=== PATIENT | male | born 1950 | race Caucasian/White ===

== ENCOUNTER 2016-07-14 09:50 | Outpatient (CLI) | payer OTHER | END 2016-07-14 23:00 | LOC: LAB SRH 09:50 | DX: Z79.01 Long term (current) use of anticoagulants (principal); Z95.4 Presence of other heart-valve replacement; I48.91 Unspecified atrial fibrillation ==

== ENCOUNTER 2016-07-19 09:08 | Outpatient (CLI) | payer OTHER | END 2016-07-19 23:00 | LOC: LAB SRH 09:08 | DX: Z51.81 Encounter for therapeutic drug level monitoring (principal); Z79.01 Long term (current) use of anticoagulants; Z95.2 Presence of prosthetic heart valve; I48.91 Unspecified atrial fibrillation | CPT/HCPCS: 90074; 94060 ==

== ENCOUNTER 2016-08-22 20:57 | Emergency (ER) | payer OTHER ==
--- NOTE | 2016-08-22 22:47 | DIAGNOSTIC IMAGING REPORT ---
PROCEDURE: XR CHEST 1 VIEW INDICATION: DIZZINESS TECHNIQUE: Single view chest. 2135 hours COMPARISON: 04/22/2011 FINDINGS: Mild cardiomegaly. Post median sternotomy and valvuloplasty changes. Mildly prominent central pulmonary arteries without central venous congestion. No change. Strandy horizontal density at the left lateral lung base, slightly worse compared to the prior study. No visible effusion or pneumothorax. Intact osseous structures. IMPRESSION: 1. Slight worsening of atelectatic change and/or scarring laterally at the left lung base. An underlying infection is not able to be excluded in this region. Correlate clinically. 2. Stable mild cardiomegaly with post valvuloplasty changes.
--- NOTE | 2016-08-22 23:42 | ED NURSING NOTES ---
Clinical Report - Nurses [facility] [address] [place] [address] 08/22/2016 20:57 Patient: MILAGRO FRANKEL TRIAGE Triage time 2054. Acuity: LEVEL 3. Chief Complaint: ABDOMINAL PAIN, NAUSEA and VOMITING. --21:35 Shantell Espinoza R.N. 21:29 08/22/16. BP: 99/64. HR: 70. RR: 20. O2 saturation: 95%. Temp: 97.8 F. Pain level now 02/09. --21:35 Shantell Espinoza R.N. Weight: 117.9 kg estimated. --21:29 Shantell Espinoza R.N.. <<STRICKEN ENTRY-- Height/Length: 76 inches Estimated. BMI: 31.7. --END STRIKE>> Correction --21:29 Shantell Espinoza R.N.. Height/Length: 79 inches Estimated. BMI: 29.3. --21:29 Shantell Espinoza R.N. Medications Lisinopril Oral. Metoprolol. Warfarin Sodium Oral 7.5 mg, 4 x a week (3.25 other 3 days). --21:40 Shantell Espinoza R.N. Cephalexin po started today at 1700. --21:41 Shantell Espinoza R.N. Allergies No Known Drug Allergy. --21:40 Shantell Espinoza R.N. History Arrived by EMS. Historian: patient. Accompanied by family. Primary physician (moise). Onset. (sudden onset of N/V and dizziness approx 1 hour ago. aoorix 2 hours after taking first cephalexin for foot proceedure being done tomorrow at podietrist office). He has had nausea and vomiting. He has had abdominal pain (gretchen umbilical abd pain). No diarrhea. PAST MEDICAL HX: ( Marfan Syndrome). SOCIAL HX: Never smoker. No alcohol use or drug use. --21:35 Shantell Espinoza R.N. PROBLEMS: Marfan Syndrome. Mitral valvew replacement. --21:33 Shantell Espinoza R.N. ADDITIONAL SURGERIES: Cyst removed in jaw.. Mitral valvuloplasty. --21:34 Shantell Espinoza R.N. Interventions ID band on patient. To treatment room. --21:35 Shantell Espinoza R.N. PHYSICAL ASSESSMENT 20:55. To room via stretcher. Patient gowned. GENERAL / NEURO / PSYCH: Alert. Oriented X 4. Appears anxious. ( c/o being dizzy). RESPIRATORY: Respirations not labored. CVS: Capillary refill less than 2 seconds. GI / : The patient has had nausea. Emesis noted. SKIN: Skin is warm and dry. --21:39 Shantell Espinoza R.N. NURSING PROGRESS NOTES 20:55. Patient gowned. Head of bed elevated. Reassurance given. Patient identifiers checked. Call light placed in reach. Side rails up. Bed placed in lowest position. Patient ready for evaluation- chart flagged. --21:36 Shantell Espinoza R.N. 21:08 08/22/2016 Site #1 started via IV in the left forearm with an 20g angiocath, with aseptic technique and good blood return; one attempt. Blood drawn: rainbow set. Labeled in the presence of the patient and sent to the lab. --21:36 Shantell Espinoza R.N. 21:10 08/22/2016 Zofran (Ondansetron HCl) IVP 4 mg given over 1 minute(s) via site #1. IV patency established. IV site checked: no pain, redness, or swelling. IV flushed thoroughly pre- and post-medication administration. IVP given by RN. --21:37 Shantell Espinoza R.N. 21:25. ( Port x-ray at bedside to do chest film). --21:38 Shantell Espinoza R.N. 21:30 08/22/16. BP: 119/64. HR: 64. RR: 18. O2 saturation: 96% on room air. Temp: deferred. Pain level now: cannot qualify. Additional comments: pt states "i'm just dizzy..." won't give me a pain number. refuses to let me lay him flat states that that would "just make him more dizzy and throw up". --21:50 Shantell Espinoza R.N. 21:30 08/22/2016 Started bag #1 1000 mL IV Fluids IV NS (Saline); bolus of 500 mL over 30 minute(s) then at 125 mL/hr over 4 hour(s) via site #1 via IV pump. IV patency established. IV site checked: no pain, redness, or swelling. IV flushed thoroughly pre- and post-medication administration. --21:51 Shantell Espinoza R.N. 22:28 08/22/2016 IV Fluids IV NS via IV site #1 Rate Changed: bag #1 125 mL/hr via IV pump. IV patency established. IV site checked: no pain, redness, or swelling. IV flushed thoroughly. (50CC BOLUS COMPLETE, iv RATE DECREASED TO 125/HR. pt states that he is less dizzy now, but is still nauseated. additional meds given for nausea). --22:38 Shantell Espinoza R.N. 22:34 08/22/2016 Zofran (Ondansetron HCl) IVP 4 mg given over 1 minute(s) via site #1. IV patency established. IV site checked: no pain, redness, or swelling. IV flushed thoroughly pre- and post-medication administration. IVP given by RN. --22:39 Shantell Espinoza R.N. 22:30 08/22/16. BP: 116/56. HR: 62. RR: 16. O2 saturation: 98%. Temp: deferred. Pain level now: cannot qualify. Additional comments: states dizziness is better, still nauseated . --22:42 Shantell Espinoza R.N. 22:38. Patient ID band checked for patient name and birthdate: patient confirmed. Clean catch urine collected with return of earl-colored clear urine; sample sent to lab for urinalysis and culture. Specimen labeled in the presence of the patient. --22:50 Shantell Espinoza R.N. 22:40. Care transferred and report given (J Carlos BRENDAN Rodriguez). --22:56 Shantell Espinoza R.N. 00:08. The patient is calm and resting quietly. SKIN: Skin is warm and dry. Skin color within normal limits. --00:12 J Carlos Still R.N. DISPOSITION / DISCHARGE 00:04 08/23/2016 IV Fluids IV NS Discontinued: bag #1 STOPPED upon discharge. Total amount infused: 700 mL. IV patency established. IV site checked: no pain, redness, or swelling. IV flushed thoroughly. --00:12 J Carlos Still R.N. 00:05 08/23/2016 Site #1 removed upon discharge. Catheter intact. Bandage applied. --00:10 J Carlos Still R.N. Departure time: 00:10. Condition at departure: stable. No learning barriers present. Discharge instructions provided and reviewed with the patient and spouse. Reviewed medication(s) side effects, precautions, dosing and course information. Prescription(s) given to the patient. Patient and spouse verbalized understanding. Written instructions provided in Bulgarian. The patient was discharged home and accompanied by spouse. He left the Emergency Department ambulatory and via private vehicle. Spouse driving. FALL RISK ASSESSMENT: Fall risk assessment completed. No fall risk identified. --00:12 J Carlos Still R.N. 00:09 08/23/16. BP: 121/61. HR: 65. RR: 15. O2 saturation: 97% on room air. Pain level now: 0/10. --00:12 J Carlos Still R.N. Locked/Released at 08/23/2016 2:39 by J Carlos Still R.N.
--- NOTE | 2016-08-22 23:42 | ED ORDER SUMMARY ---
..... Patient: MILAGRO FRANKEL OrderSheet [facility] VisitID: [id number] [address] [place] [address] 66y, M Registration Date/Time: 08/22/2016 ORDER SHEET Weight: 117.9 kg (estimated) Allergies: No Known Drug Allergy GENERAL ORDERS: Chest 1V Urgent (21:08/22/2016 Connie SMITH) (Ack 21:20 LMuller) (21:39 LMuller) Steel Wool Machine Operator (Continuous) (21:08/22/2016 Connie SMITH) (Ack 21:20 LMuller) (21:28 DDean R.N.) CBC w Diff Urgent (:08/22/2016 Connie SMITH) (Ack 21:20 LMuller) (21:28 DDean R.N.) CMP Urgent (21:08/22/2016 Connie SMITH) (Ack 21:20 LMuller) (21:28 DDean R.N.) PT with INR Urgent (21:08/22/2016 Connie SMITH) (Ack 21:20 LMmiky) (21:28 DDean R.N.) PTT Urgent (:08/22/2016 Connie SMITH) (Ack 21:20 LMmiky) (21:28 DDean R.N.) Amylase Urgent (21:08/22/2016 Connie SMITH) (Ack 21:20 LMulljose david) (21:28 DDean R.N.) Lipase Urgent (21:08/22/2016 Connie SMITH) (Ack 21:20 LMmiky) (21:28 DDean R.N.) UA-Culture if indicated Urgent (21:08/22/2016 Connie SMITH) (Ack 21:20 Darrell) (22:50 DDean R.N.) CPK Urgent (21:08/22/2016 Connie SMITH) (Ack 21:20 LMmiky) (21:28 DDean R.N.) Troponin-I Urgent (21:08/22/2016 Connie SMITH) (Ack 21:20 LMuller) (21:28 DDean R.N.) BNP Urgent (21:17 08/22/2016 Connie SMITH) (Ack 21:20 LMmiky) (21:28 DDean R.N.) Pulse oximeter (21:17 08/22/2016 Connie SMITH) (Ack 21:20 LMchleaer) (21:28 DDean R.N.) EKG - ER Stat (21:17 08/22/2016 Connie SMITH) (Ack 21:20 Darrell) (21:43 ALawrence ER Tech1) MEDICATION ORDERS: IV FLUIDS: IV NS : initial bolus 500 mL (1000 mL/hr), then 125 mL/hr for 4h (NOW); Urgent (21:17 08/22/2016 Connie SMITH) (Ack 21:28 DDean R.N.) (21:51 DDean R.N.) Zofran IV 4 mg (NOW) (21:17 08/22/2016 Connie SMITH) (Ack 21:28 DDean R.N.) (21:37 DDean R.N.) Zofran IV 4 mg (NOW) (22:38 08/22/2016 DDean R.N. per protocol) (22:39 DDean R.N.) ORDER SHEET NOTES: [Electronically signed by J Carlos Still R.N. (02:39 08/23/2016)] [Electronically signed by Roosevelt Ordaz MD (08:27 08/23/2016)] [Electronically locked/signed by J Carlos Still R.N. (02:39 08/23/2016)]
--- NOTE | 2016-08-22 23:42 | ED ORDER SUMMARY ---
..... Patient: MILAGRO FRANKEL OrderSheet [facility] VisitID: [id number] [address] [place] [address] 66y, M Registration Date/Time: 08/22/2016 ORDER SHEET Weight: 117.9 kg (estimated) Allergies: No Known Drug Allergy GENERAL ORDERS: Chest 1V Urgent (21:08/22/2016 Connie SMITH) (Ack 21:20 LMuller) (21:39 LMuller) Administrative Sales Assistant (Continuous) (21:08/22/2016 Connie SMITH) (Ack 21:20 LMuller) (21:28 DDean R.N.) CBC w Diff Urgent (:08/22/2016 Connie SMITH) (Ack 21:20 LMuller) (21:28 DDean R.N.) CMP Urgent (21:08/22/2016 Connie SMITH) (Ack 21:20 LMuller) (21:28 DDean R.N.) PT with INR Urgent (21:08/22/2016 Connie SMITH) (Ack 21:20 LMmiky) (21:28 DDean R.N.) PTT Urgent (:08/22/2016 Connie SMITH) (Ack 21:20 LMmiky) (21:28 DDean R.N.) Amylase Urgent (21:08/22/2016 Connie SMITH) (Ack 21:20 LMulljose david) (21:28 DDean R.N.) Lipase Urgent (21:08/22/2016 Connie SMITH) (Ack 21:20 LMmiky) (21:28 DDean R.N.) UA-Culture if indicated Urgent (21:08/22/2016 Connie SMITH) (Ack 21:20 Darrell) (22:50 DDean R.N.) CPK Urgent (21:08/22/2016 Connie SMITH) (Ack 21:20 LMmiky) (21:28 DDean R.N.) Troponin-I Urgent (21:08/22/2016 Connie SMITH) (Ack 21:20 LMuller) (21:28 DDean R.N.) BNP Urgent (21:17 08/22/2016 Connie SMITH) (Ack 21:20 LMmiky) (21:28 DDean R.N.) Pulse oximeter (21:17 08/22/2016 Connie SMITH) (Ack 21:20 LMchelaer) (21:28 DDean R.N.) EKG - ER Stat (21:17 08/22/2016 Connie SMITH) (Ack 21:20 Darrell) (21:43 ALawrence ER Tech1) MEDICATION ORDERS: IV FLUIDS: IV NS : initial bolus 500 mL (1000 mL/hr), then 125 mL/hr for 4h (NOW); Urgent (21:17 08/22/2016 Connie SMITH) (Ack 21:28 DDean R.N.) (21:51 DDean R.N.) Zofran IV 4 mg (NOW) (21:17 08/22/2016 Connie SMITH) (Ack 21:28 DDean R.N.) (21:37 DDean R.N.) Zofran IV 4 mg (NOW) (22:38 08/22/2016 DDean R.N. per protocol) (22:39 DDean R.N.) ORDER SHEET NOTES: [Electronically signed by J Carlos Still R.N. (02:39 08/23/2016)] [Electronically signed by Roosevelt Ordaz MD (08:27 08/23/2016)] [Electronically locked/signed by J Carlos Still R.N. (02:39 08/23/2016)]
--- NOTE | 2016-08-22 23:42 | ED CLINICAL REPORT ---
Clinical Report - Physicians/Mid Levels [facility] [address] [place] [address] 08/22/2016 20:57 Patient: MILAGRO FRANKEL Time Seen: 21:09. Arrived- By private vehicle. Historian- patient. HISTORY OF PRESENT ILLNESS Chief Complaint: VOMITING. This started about 1 hour ago and is still present. It was abrupt in onset and has been intermittent. The patient has had nausea. He has had moderate vomiting. The vomiting has occurred several times. No blood-tinged emesis, coffee-grounds emesis or frankly bloody emesis. No diarrhea, black stools or bloody stools. He has had severe, crampy, intermittent abdominal pain (recently - gone nw). The pain is described as located in the central area of the abdomen. Has recently been on antibiotics (he started a prescription for Cephalexin at 5 PM for a toe infection). The illness is described as moderate. Recent medical care: The patient was seen recently in a clinic. Seen for other problems. ( he was diagnosed with cellulitis of his left second toe and was started on cephalexin today). REVIEW OF SYSTEMS No chills, fever, sweats, calf pain or chest pain. No cough, difficulty breathing, palpitations, black stools or bloody stools. No constipation, diarrhea or urinary problems. He has had mild pedal edema involving the right and left leg (chronically). It has been similar to previous symptoms. All systems otherwise negative, except as recorded above. PAST HISTORY PCP - [facility]. Problems: Marfan Syndrome. Mitral valvew replacement. Additional Surgeries: Cyst removed in jaw.. Mitral valvuloplasty. Medications: Cephalexin po started today at 1700. Lisinopril Oral. Metoprolol. Warfarin Sodium Oral 7.5 mg, 4 x a week (3.25 other 3 days). Allergies: No Known Drug Allergy. SOCIAL HISTORY Never smoker. No alcohol use or drug use. He lives with spouse. Has good social support. FAMILY HISTORY Denies family medical history. ADDITIONAL NOTES The nursing notes have been reviewed. PHYSICAL EXAM Vital Signs: 08/22/2016 21:29 BP: 99/64. HR: 70. RR: 20. O2 saturation: 95%. Temp: 97.8 F. Have been reviewed. Appearance: Alert. Eyes: Pupils equal, round and reactive to light. ENT: Pharynx normal. Neck: Normal inspection. Neck supple. CVS: Normal heart rate and rhythm. Heart sounds normal. Respiratory: No respiratory distress. Breath sounds normal. Abdomen: Soft and nontender. Abnormal bowel sounds: hyperactive. No organomegaly. No mass. Back: Normal inspection. No CVA tenderness. Skin: Skin warm and dry. Normal skin color. No rash. Normal skin turgor. Extremities: Bilateral mild edema of the lower extremities. Extremities exhibit normal ROM. No calf tenderness. Left foot: mild erythema and swelling and moderate tenderness of the second toe. LABS, X-RAYS, AND EKG EKG: Rate: 60. unusual P axis. Prior EKG unavailable. The study has been independently viewed by me. Laboratory Tests: UA-Culture if indicated: (LINDA: 08/22/2016 22:38) ( [facility] 08/22/2016 23:00) Final results Test Result Flag Units (Reference) URINE COLOR YELLOW URINE APPEARANCE CLEAR URINE GLUCOSE NEGATIVE (NEGATIVE) URINE BILIRUBIN NEGATIVE (NEGATIVE) URINE KETONE NEGATIVE (NEGATIVE) URINE SPECIFIC GRAVITY >= 1.030 (1.010-1.030) URINE PH 6.0 (5.0-8.0) URINE PROTEIN TRACE (NEGATIVE) URINE UROBILINOGEN 0.2 EU/dL (0.2-1.0) URINE NITRITE NEGATIVE (NEGATIVE) URINE BLOOD NEGATIVE (NEGATIVE) URINE LEUK ESTERASE NEGATIVE (NEGATIVE) URINE RBC 0-1 rbc/hpf (0-1) URINE WBC 0-1 wbc/hpf (0-1) URINE EPITHELIAL CELLS 0-1 EPI/hpf (0-5) URINE BACTERIA NONE SEEN (NONE SEEN) URINE COMMENT CULT NOT INDICATED URINE CULTURES ARE SET-UP BASED ON THE FOLLOWING CRITERIA:POSITIVE NITRITEPOSITIVE LEUKOCYTE ESTERASEGREATER THAN 10 WHITE BLOOD CELLSMODERATE (2+) OR GREATER BACTERIA CBC w Diff: (LINDA: 08/22/2016 21:08) ( [facility] 08/22/2016 21:43) Final results Test Result Flag Units (Reference) WHITE BLOOD COUNT 10.6 K/uL (4.5-11.5) RED BLOOD COUNT 5.54 M/uL (4.50-5.90) HEMOGLOBIN 16.8 gm/dL (13.5-17.5) HEMATOCRIT 50.1 % (41.0-53.0) MEAN CELL VOLUME 90 fL (80-100) MEAN CORPUSCULAR HGB 30 pg (26-34) MEAN CORPUSCULAR HGB CONC 34 g/dL (31-37) RED CELL DISTRIBUTION WIDTH 14.1 % (11.6-14.8) PLATELET COUNT 152 K/uL (150-400) NEUTROPHIL % 84.3 H % (50-75) LYMPH % 13.8 L % (25-40) MONO % 1.6 L % (3-14) EOSINOPHIL % 0.1 % (0-4) BASOPHIL % 0.2 % (0-2) PT with INR: (LINDA: 08/22/2016 21:08) ( [facility] 08/22/2016 21:50) Final results Test Result Flag Units (Reference) INR 1.9 H (0.8-1.2) Low Intensity Therapy: INR 1.5-2.0 PT range 18.5-23.1Mod.Intensity Therapy: INR 2.0-3.0 PT range 23.1-31.5High Intensity Therapy: INR 2.5-3.5 PT range 27.4-35.5High Intensity Therapy 2: INR 3.0-4.0 PT range 31.5-39.3 APTT 34 SECONDS (24-34) BNP: (LINDA: 08/22/2016 21:08) ( [facility] 08/22/2016 22:16) Final results Test Result Flag Units (Reference) B-TYPE NATRIURETIC PEPTIDE 67.4 pg/ml (5-100) CMP: (LINDA: 08/22/2016 21:08) ( [facility] 08/22/2016 22:19) Final results Test Result Flag Units (Reference) GLUCOSE 138 H mg/dL (70-110) BUN 24 H mg/dL (7-18) CREATININE 1.0 mg/dL (0.6-1.3) Estimated GFR >60 mL/min Estimated GFR- >60 mL/min Note: Persistent reduction over 3 months in eGFR<60 mL/min/1.73 m2 defines CKD. Patients with eGFR values>=60 mL/min/1.73 m2 may also have CKD if evidence ofpersistent proteinuria. Additional information may be foundat www.kidney.org. SODIUM 142 mmol/L (136-145) POTASSIUM 3.5 mmol/L (3.5-5.1) CHLORIDE 105 mmol/L (98-107) CARBON DIOXIDE 24 mmol/L (21-32) CALCIUM 8.7 mg/dL (8.5-10.1) TOTAL PROTEIN 7.2 g/dL (6.4-8.2) ALBUMIN 3.8 g/dL (3.3-5.0) BILIRUBIN, TOTAL 0.6 mg/dL (0.0-1.0) ALKALINE PHOSPHATASE 93 U/L (46-116) AST (SGOT) 25 U/L (15-37) ALT (SGPT) 28 U/L (12-78) LIPASE 122 U/L (73-393) AMYLASE 60 U/L (25-115) CPK 80 U/L (24-260) TROPONIN I <0.05 L ng/mL (0.00-1.5) TROPONIN REFERENCE RANGE:<0.1 NEGATIVE0.1-1.5 INDETERMINANT>1.5 POSITIVE . CLINICAL IMPRESSION Vomiting with nausea. Cellulitis of the left 2nd toe. Possible adverse drug reaction involving the cephalosporin class of antibiotic. INSTRUCTIONS Drink plenty of fluids. Warnings: Further evaluation is necessary. SEDATIVE MEDICATION: You were given sedative medication during your visit. Do not drive or operate dangerous machinery. GENERAL WARNINGS: Return or contact your physician immediately if your condition worsens or changes unexpectedly, if not improving as expected, or if other problems arise. Your Current Medications: STOP TAKING THE FOLLOWING MEDICATIONS: Cephalexin po started today at 1700*. CONTINUE TAKING THE FOLLOWING MEDICATIONS: Lisinopril Oral. Metoprolol*. Warfarin Sodium Oral : 7.5 mg 4 x a week, 3.25 other 3 days. Prescription Medications: Zofran 4 mg: Take 1 orally every six hours as needed for nausea/vomiting. Dispense ten (10). No refills. Substitution is permissible. Trimethoprim-Sulfamethoxazole DS: take 1 tablet orally every 12 hours for 7 days. Dispense fourteen (14). No refills. Follow-up: Follow up with your doctor tomorrow as scheduled. Understanding of the discharge instructions verbalized by patient and family. (Electronically signed by Roosevelt Ordaz MD 08/23/2016 8:27)
--- NOTE | 2016-08-23 08:27 | ED DISCHARGE INSTRUCTIONS ---
Patient: MILAGRO FRANKEL General Instructions [facility] VisitID: [id number] [place] [address] 66y, M Registration Date/Time: 08/22/2016 Vomiting with nausea. Cellulitis of the left 2nd toe. INSTRUCTIONS Drink plenty of fluids. Warnings: Further evaluation is necessary. SEDATIVE MEDICATION: You were given sedative medication during your visit. Do not drive or operate dangerous machinery. GENERAL WARNINGS: Return or contact your physician immediately if your condition worsens or changes unexpectedly, if not improving as expected, or if other problems arise. Your Current Medications: STOP TAKING THE FOLLOWING MEDICATIONS: Cephalexin po started today at 1700*. CONTINUE TAKING THE FOLLOWING MEDICATIONS: Lisinopril Oral. Metoprolol*. Warfarin Sodium Oral : 7.5 mg 4 x a week, 3.25 other 3 days. Prescription Medications: Zofran 4 mg: Take 1 orally every six hours as needed for nausea/vomiting. Dispense ten (10). No refills. Substitution is permissible. Trimethoprim-Sulfamethoxazole DS: take 1 tablet orally every 12 hours for 7 days. Dispense fourteen (14). No refills. Follow-up: Follow up with your doctor tomorrow as scheduled. Understanding of the discharge instructions verbalized by patient and family. ADDITIONAL INFORMATION Vomiting [6Yr-Adult] Vomiting is a common symptom that may be due to different causes. These include gastroenteritis ("stomach flu"), food poisoning and gastritis. There are other more serious causes of vomiting which may be hard to diagnose early in the illness. Therefore, it is important to watch for the warning signs listed below. The main danger from repeated vomiting is dehydration. This is due to excess loss of water and minerals from the body. When this occurs, body fluids must be replaced. Home Care: If symptoms are severe, rest at home for the next 24 hours. You may use acetaminophen (Tylenol) or ibuprofen (Motrin, Advil) to control fever, unless another medicine was prescribed. [NOTE : If you have chronic liver or kidney disease or ever had a stomach ulcer or GI bleeding, talk with your doctor before using these medicines.] (Aspirin should never be used in anyone under 18 years of age who is ill with a fever. It may cause severe liver damage.) Avoid tobacco and alcohol use, which may worsen your symptoms. If medicines for vomiting were prescribed, take as directed. Once vomiting stops, then follow these guidelines: During The First 12-24 Hours follow the diet below: FRUIT JUICES: Apple, grape juice, clear fruit drinks, and electrolyte replacement drinks. BEVERAGES: Soft drinks without caffeine; mineral water (plain or flavored), decaffeinated tea and coffee. SOUPS: Clear broth, consomm and bouillon DESSERTS: Plain gelatin, popsicles and fruit juice bars. As you feel better, you may add 6-8 ounces of yogurt per day. During The Next 24 Hours you may add the following to the above: Hot cereal, plain toast, bread, rolls, crackers Plain noodles, rice, mashed potatoes, chicken noodle or rice soup Unsweetened canned fruit (avoid pineapple), bananas Limit caffeine and chocolate. No spices or seasonings except salt. During The Next 24 Hours Gradually resume a normal diet, as you feel better and your symptoms lessen. Follow Up with your doctor as advised if you are not improving over the next 2-3 days. Get Prompt Medical Attention if any of the following occur: Constant right-sided lower abdominal pain or increasing general abdominal pain Continued vomiting (unable to keep liquids down) for 24 hours Frequent diarrhea (more than 5 times a day); blood (red or black color) or mucus in diarrhea Reduced urine output or extreme thirst Weakness, dizziness or fainting Unusually drowsy or confused Fever of 100.4F (38C) oral or higher, not better with fever medication Yellow color of the eyes or skin Cellulitis You have an infection of the skin known as cellulitis. This usually starts with a scrape, cut, insect bite, blister or other opening in the skin which becomes infected. This is a serious condition. It must be watched closely to be sure the infection is not spreading. With antibiotic treatment, the size of the red area will gradually shrink in size until the skin returns to normal. This will take 7-10 days. The red area should never increase in size once the antibiotic medicine has been started. Occasionally, an infection will be resistant to one antibiotic and another one will have to be used. Home Care: 1) Limit the use of the affected part, since excess movement can cause the infection to spread. 2) If the infection is on your leg, walk as little as possible during the first few days of the treatment. Keep your leg elevated while sitting. This will reduce swelling. 3) Take all of the antibiotic medicine exactly as directed until it is gone. Be careful not to miss any doses, especially during the first seven days. Follow Up with your doctor or this facility as directed. Check the infected area daily for the warning signs listed below. Get Prompt Medical Attention if any of the following occur: -- Spreading area of redness -- Increasing swelling or pain -- Appearance of pus or drainage -- Fever over 100.4 F (38.0 C) oral, or over 101.4 F (38.6 C) rectal, after two days on antibiotics Ondansetron Oral disintegrating tablet What is this medicine? ONDANSETRON (on INDRA se brennan) is used to treat nausea and vomiting caused by chemotherapy. It is also used to prevent or treat nausea and vomiting after surgery. How should I use this medicine? These tablets are made to dissolve in the mouth. Do not try to push the tablet through the foil backing. With dry hands, peel away the foil backing and gently remove the tablet. Place the tablet in the mouth and allow it to dissolve, then swallow. While you may take these tablets with water, it is not necessary to do so. Talk to your brazing furnace operator regarding the use of this medicine in children. Special care may be needed. What side effects may I notice from receiving this medicine? Side effects that you should report to your doctor or health acute care nurse practitioner as soon as possible: allergic reactions like skin rash, itching or hives, swelling of the face, lips, or tongue breathing problems dizziness fast or irregular heartbeat feeling faint or lightheaded, falls fever and chills swelling of the hands and feet tightness in the chest Side effects that usually do not require medical attention (report to your doctor or health acute care nurse practitioner if they continue or are bothersome): constipation or diarrhea headache What may interact with this medicine? Do not take this medicine with any of the following medications: -apomorphine -cisapride -dofetilide -dronedarone -pimozide -thioridazine -ziprasidone This medicine may also interact with the following medications: -carbamazepine -phenytoin -rifampicin -tramadol -other medicines that prolong the QT interval (cause an abnormal heart rhythm) What if I miss a dose? If you miss a dose, take it as soon as you can. If it is almost time for your next dose, take only that dose. Do not take double or extra doses. Where should I keep my medicine? Keep out of the reach of children. Store between 2 and 30 degrees C (36 and 86 degrees F). Throw away any unused medicine after the expiration date. What should I tell my health care provider before I take this medicine? They need to know if you have any of these conditions: heart disease history of irregular heartbeat liver disease low levels of magnesium or potassium in the blood an unusual or allergic reaction to ondansetron, granisetron, other medicines, foods, dyes, or preservatives or trying to get breast-feeding What should I watch for while using this medicine? Check with your doctor or health acute care nurse practitioner as soon as you can if you have any sign of an allergic reaction. Sulfamethoxazole, Trimethoprim Oral tablet What is this medicine? SULFAMETHOXAZOLE; TRIMETHOPRIM or SMX-TMP (suhl fuh meth OK du zohl; trye METH oh prim) is a combination of a sulfonamide antibiotic and a second antibiotic, trimethoprim. It is used to treat or prevent certain kinds of bacterial infections. It will not work for colds, flu, or other viral infections. How should I use this medicine? Take this medicine by mouth with a full glass of water. Follow the directions on the prescription label. Take your medicine at regular intervals. Do not take it more often than directed. Do not skip doses or stop your medicine early. Talk to your brazing furnace operator regarding the use of this medicine in children. Special care may be needed. This medicine has been used in children as young as 2 months of age. What side effects may I notice from receiving this medicine? Side effects that you should report to your doctor or health acute care nurse practitioner as soon as possible: allergic reactions like skin rash or hives, swelling of the face, lips, or tongue breathing problems fever or chills, sore throat irregular heartbeat, chest pain joint or muscle pain pain or difficulty passing urine red pinpoint spots on skin redness, blistering, peeling or loosening of the skin, including inside the mouth unusual bleeding or bruising unusually weak or tired yellowing of the eyes or skin Side effects that usually do not require medical attention (report to your doctor or health acute care nurse practitioner if they continue or are bothersome): diarrhea dizziness headache loss of appetite nausea, vomiting nervousness What may interact with this medicine? Do not take this medicine with any of the following medications: aminobenzoate potassium dofetilide metronidazole This medicine may also interact with the following medications: XI inhibitors like benazepril, enalapril, lisinopril, and ramipril cyclosporine digoxin diuretics indomethacin medicines for diabetes methenamine methotrexate phenytoin potassium supplements pyrimethamine sulfinpyrazone tricyclic antidepressants warfarin What if I miss a dose? If you miss a dose, take it as soon as you can. If it is almost time for your next dose, take only that dose. Do not take double or extra doses. Where should I keep my medicine? Keep out of the reach of children. Store at room temperature between 20 to 25 degrees C (68 to 77 degrees F). Protect from light. Throw away any unused medicine after the expiration date. What should I tell my health care provider before I take this medicine? They need to know if you have any of these conditions: anemia asthma being treated with anticonvulsants if you frequently drink alcohol containing drinks kidney disease liver disease low level of folic acid or [id number] dehydrogenase poor nutrition or malabsorption porphyria severe allergies thyroid disorder an unusual or allergic reaction to sulfamethoxazole, trimethoprim, sulfa drugs, other medicines, foods, dyes, or preservatives or trying to get breast-feeding What should I watch for while using this medicine? Tell your doctor or health acute care nurse practitioner if your symptoms do not improve. Drink several glasses of water a day to reduce the risk of kidney problems. Do not treat diarrhea with over the counter products. Contact your doctor if you have diarrhea that lasts more than 2 days or if it is severe and watery. This medicine can make you more sensitive to the sun. Keep out of the sun. If you cannot avoid being in the sun, wear protective clothing and use a sunscreen. Do not use sun lamps or tanning beds/booths. You have been given the following additional information: Vomiting (6Y-Adult) Cellulitis Ondansetron Oral disintegrating tablet Sulfamethoxazole, Trimethoprim Oral tablet (Electronically signed by Roosevelt Ordaz MD 08/23/2016 8:27)
--- NOTE | 2016-08-23 08:27 | ED MAR SUMMARY ---
..... Medication Administration Record [facility] [address] [place] [address] Patient: MILAGRO FRANKEL Visit ID: [id number] 66y, M Weight: 117.9 kg Height/Length: 79 in BMI: 29.3 ALLERGIES: No Known Drug Allergy Given 21:10 08/22/2016 Shantell Espinoza R.N. Medication Administered: ZOFRAN [IVP] (ONDANSETRON HCL), Dose: 4 mg IVP over 1 minute(s), Site: #1 left forearm. Medication Ordered: Zofran IV 4 mg (NOW). Start 21:30 08/22/2016 Shantell Espinoza R.N., Stop 00:04 08/23/2016 J Carlos Still R.N. Medication Administered: IV NS (SALINE), Dose: IV Fluids over 4 hour(s), Rate: 125 mL/hr, Bolus: 500 mL over 30 minute(s), Dispensed: 1000 mL bag, Site: #1 left forearm. Medication Ordered: IV NS : initial bolus 500 mL (1000 mL/hr), then 125 mL/hr for 4h (NOW); Urgent. Given 22:34 08/22/2016 Shantell Espinoza R.N. Medication Administered: ZOFRAN [IVP] (ONDANSETRON HCL), Dose: 4 mg IVP over 1 minute(s), Site: #1 left forearm. Medication Ordered: Zofran IV 4 mg (NOW).
--- NOTE | 2016-08-23 08:27 | ED MAR SUMMARY ---
..... Medication Administration Record [facility] [address] [place] [address] Patient: MILAGRO FRANKEL Visit ID: [id number] 66y, M Weight: 117.9 kg Height/Length: 79 in BMI: 29.3 ALLERGIES: No Known Drug Allergy Given 21:10 08/22/2016 Shantell Espinoza R.N. Medication Administered: ZOFRAN [IVP] (ONDANSETRON HCL), Dose: 4 mg IVP over 1 minute(s), Site: #1 left forearm. Medication Ordered: Zofran IV 4 mg (NOW). Start 21:30 08/22/2016 Shantell Espinoza R.N., Stop 00:04 08/23/2016 J Carlos Still R.N. Medication Administered: IV NS (SALINE), Dose: IV Fluids over 4 hour(s), Rate: 125 mL/hr, Bolus: 500 mL over 30 minute(s), Dispensed: 1000 mL bag, Site: #1 left forearm. Medication Ordered: IV NS : initial bolus 500 mL (1000 mL/hr), then 125 mL/hr for 4h (NOW); Urgent. Given 22:34 08/22/2016 Shantell Espinoza R.N. Medication Administered: ZOFRAN [IVP] (ONDANSETRON HCL), Dose: 4 mg IVP over 1 minute(s), Site: #1 left forearm. Medication Ordered: Zofran IV 4 mg (NOW).
--- NOTE | 2016-08-23 08:28 | ED MED RECONCILIATION SUMMARY ---
Patient: MILAGRO FRANKEL Medication Reconciliation Report [facility] VisitID: [id number] [address] [place] [address] 66y, M Registration Date/Time: 08/22/2016 Weight: 117.9 kg Height/Length: 79 in. BMI: 29.3 ALLERGIES: No Known Drug Allergy The patient's Home Medications are listed below: STOP TAKING THE FOLLOWING MEDICATIONS: Cephalexin po started today at 1700 CONTINUE TAKING THE FOLLOWING MEDICATIONS: Lisinopril Oral Metoprolol Warfarin Sodium Oral 7.5 mg, 4 x a week, 3.25 other 3 days The source(s) of the original Home Medication information: Not obtained. The following Medications were given to the patient in the Emergency Department: Zofran [IVP] IVP 4 mg, administered: 08/22/2016 9:10:00 PM IV NS IV Fluids bolus 500 mL over 30 minute(s), then 125 mL/hr, administered: 08/22/2016 9:30:00 PM Zofran [IVP] IVP 4 mg, administered: 08/22/2016 10:34:00 PM The following Medications were prescribed to the patient: Zofran 4 mg: Take 1 orally every six hours as needed for nausea/vomiting. Dispense ten (10). No refills. Substitution is permissible. -- Roosevelt Ordaz MD Trimethoprim-Sulfamethoxazole DS: take 1 tablet orally every 12 hours for 7 days. Dispense fourteen (14). No refills. -- Roosevelt Ordaz MD
--- NOTE | 2016-08-23 08:28 | ED MED RECONCILIATION SUMMARY ---
Patient: MILAGRO FRANKEL Medication Reconciliation Report [facility] VisitID: [id number] [address] [place] [address] 66y, M Registration Date/Time: 08/22/2016 Weight: 117.9 kg Height/Length: 79 in. BMI: 29.3 ALLERGIES: No Known Drug Allergy The patient's Home Medications are listed below: STOP TAKING THE FOLLOWING MEDICATIONS: Cephalexin po started today at 1700 CONTINUE TAKING THE FOLLOWING MEDICATIONS: Lisinopril Oral Metoprolol Warfarin Sodium Oral 7.5 mg, 4 x a week, 3.25 other 3 days The source(s) of the original Home Medication information: Not obtained. The following Medications were given to the patient in the Emergency Department: Zofran [IVP] IVP 4 mg, administered: 08/22/2016 9:10:00 PM IV NS IV Fluids bolus 500 mL over 30 minute(s), then 125 mL/hr, administered: 08/22/2016 9:30:00 PM Zofran [IVP] IVP 4 mg, administered: 08/22/2016 10:34:00 PM The following Medications were prescribed to the patient: Zofran 4 mg: Take 1 orally every six hours as needed for nausea/vomiting. Dispense ten (10). No refills. Substitution is permissible. -- Roosevelt Ordaz MD Trimethoprim-Sulfamethoxazole DS: take 1 tablet orally every 12 hours for 7 days. Dispense fourteen (14). No refills. -- Roosevelt Ordaz MD
== END 2016-08-23 00:10 | disposition home or self-care (01) ==
LOC: ED SRH 20:57
DX: R11.2 Nausea with vomiting, unspecified (principal); L03.032 Cellulitis of left toe; I10 Essential (primary) hypertension; Z79.899 Other long term (current) drug therapy
CPT/HCPCS: 90004; 90100; 90616; 91320; 92235; 92530; 92610; 94001; 94060; 95059

== ENCOUNTER 2016-08-30 09:22 | Outpatient (CLI) | payer OTHER | END 2016-08-30 23:00 | LOC: LAB SRH 09:22 | DX: Z79.01 Long term (current) use of anticoagulants (principal); Z95.4 Presence of other heart-valve replacement; I48.91 Unspecified atrial fibrillation | CPT/HCPCS: 90074; 94060 ==

== ENCOUNTER 2016-09-13 08:36 | Outpatient (CLI) | payer OTHER | END 2016-09-13 23:00 | LOC: LAB SRH 08:36 | DX: Z79.01 Long term (current) use of anticoagulants (principal); Z95.4 Presence of other heart-valve replacement; I48.91 Unspecified atrial fibrillation | CPT/HCPCS: 90074; 94060 ==

== ENCOUNTER 2016-09-20 10:22 | Outpatient (CLI) | payer OTHER | END 2016-09-20 23:00 | LOC: LAB SRH 10:22 | DX: Z51.81 Encounter for therapeutic drug level monitoring (principal); Z79.01 Long term (current) use of anticoagulants; Z95.4 Presence of other heart-valve replacement; I48.91 Unspecified atrial fibrillation | CPT/HCPCS: 90074; 94060 ==

== ENCOUNTER 2016-10-04 09:17 | Outpatient (CLI) | payer OTHER | END 2016-10-04 23:00 | LOC: LAB SRH 09:17 | DX: Z79.01 Long term (current) use of anticoagulants (principal); Z95.4 Presence of other heart-valve replacement; I48.91 Unspecified atrial fibrillation | CPT/HCPCS: 90074; 94060 ==

== ENCOUNTER 2016-10-11 09:42 | Outpatient (CLI) | payer OTHER | END 2016-10-11 23:00 | LOC: LAB SRH 09:42 | DX: Z79.01 Long term (current) use of anticoagulants (principal); Z51.81 Encounter for therapeutic drug level monitoring; I48.91 Unspecified atrial fibrillation; Z95.4 Presence of other heart-valve replacement | CPT/HCPCS: 90074; 94060 ==

== ENCOUNTER 2016-10-20 09:16 | Outpatient (CLI) | payer OTHER | END 2016-10-20 23:00 | disposition home or self-care (01) | LOC: LAB SRH 09:16 | DX: Z51.81 Encounter for therapeutic drug level monitoring (principal); Z79.01 Long term (current) use of anticoagulants; I48.91 Unspecified atrial fibrillation; Z95.2 Presence of prosthetic heart valve | CPT/HCPCS: 90074; 94060 ==

== ENCOUNTER 2016-11-03 11:28 | Outpatient (CLI) | payer OTHER | END 2016-11-03 23:00 | LOC: LAB SRH 11:28 | DX: Z79.01 Long term (current) use of anticoagulants (principal); Z95.4 Presence of other heart-valve replacement; I48.91 Unspecified atrial fibrillation | CPT/HCPCS: 90074; 94060 ==

== ENCOUNTER 2016-11-17 09:14 | Outpatient (CLI) | payer OTHER | END 2016-11-17 23:00 | LOC: LAB SRH 09:14 | DX: Z51.81 Encounter for therapeutic drug level monitoring (principal); Z79.01 Long term (current) use of anticoagulants; I48.91 Unspecified atrial fibrillation; Z95.2 Presence of prosthetic heart valve | CPT/HCPCS: 90074; 94060 ==

== ENCOUNTER 2016-11-23 09:59 | Outpatient (CLI) | payer OTHER | END 2016-11-23 23:00 | LOC: LAB SRH 09:59 | DX: Z51.81 Encounter for therapeutic drug level monitoring (principal); Z79.01 Long term (current) use of anticoagulants; I48.91 Unspecified atrial fibrillation; Z95.2 Presence of prosthetic heart valve | CPT/HCPCS: 90074; 94060 ==

== ENCOUNTER 2016-11-29 09:24 | Outpatient (CLI) | payer OTHER | END 2016-11-29 23:00 | LOC: LAB SRH 09:24 | DX: Z79.01 Long term (current) use of anticoagulants (principal); Z95.4 Presence of other heart-valve replacement; I48.91 Unspecified atrial fibrillation | CPT/HCPCS: 90074; 94060 ==

== ENCOUNTER 2016-12-12 08:28 | Outpatient (CLI) | payer OTHER | END 2016-12-12 23:00 | disposition home or self-care (01) | LOC: LAB SRH 08:28 | DX: Z51.81 Encounter for therapeutic drug level monitoring (principal); Z79.01 Long term (current) use of anticoagulants; I48.91 Unspecified atrial fibrillation; Z95.4 Presence of other heart-valve replacement | CPT/HCPCS: 90074; 94060 ==

== ENCOUNTER → 2016-12-26 | Outpatient (CLI) | payer OTHER | LOC: LAB SRH 07:53 | DX: Z79.01 Long term (current) use of anticoagulants (principal); Z95.4 Presence of other heart-valve replacement; I48.91 Unspecified atrial fibrillation | CPT/HCPCS: 90074; 94060 ==